=== PATIENT | male | born 1940 | race African-American/Black ===

== ENCOUNTER 2020-09-30 13:54 | Observation (INO) | payer MEDICARE ==
[~2020-09-30 13:54] MED LIST: Iopamidol-370 76% 500 ML 1 ML ONE
[2020-09-30] MEDS ORDERED: Nitroglycerin 0.4 MG TAB 1 EACH ONE (14:38)
[2020-09-30] MEDS ORDERED: Furosemide 20 MG/2 ML VIAL ONE (14:38)
--- NOTE | 2020-09-30 15:14 | CT ---
CT BRAIN NONCONTRAST: DATE: 09/30/2020 HISTORY: 80-year-old male with generalized weakness and hypertension COMPARISON: None FINDINGS: There is no evidence of acute intra-axial or extra-axial hemorrhage. There is no midline shift or any other mass effect. There is no extra-axial fluid collection. There is no evidence of obstructive hydrocephalus. Calvarium is intact. There are low attenuation areas in the white matter. These are no nspecific, but in a patient of this age, they are probably chronic ischemic white matter changes due to microvascular atherosclerosis. There is a small metallic foreign body along the anterior nasal septum centered slightly to the left of midline. The frontal, ethmoid, and sphenoid sinuses, upper portion of nasal cavity, and bilateral tympanomastoid cavities, are grossly clear. There is an approx imately 1 x 2 cm soft tissue density mass with irregular margins in the occipital subcutaneous fat, slightly to the left of midline. It contains a few punctate faint calcifications. IMPRESSION: 1) No acute intracranial findings. 2) chronic ischemic white matter changes. 3) metallic foreign body in the nasal cavity. 4) soft tissue density posterior occipital superficial mass. Etiology unknown.
[2020-09-30 15:18] LABS: Troponin I 0.041 ng/mL (< 0.028)
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
[2020-09-30] MEDS ORDERED: Enoxaparin Sodium 30 MG/0.3 ML SYRINGE ONE (17:18)
[2020-09-30] MEDS ORDERED: Enoxaparin Sodium 40 MG/0.4 ML SYRINGE ONE (17:18)
[2020-09-30] MEDS ORDERED: Acetaminophen 325 MG TAB PO PRN (17:20)
[2020-09-30] MEDS ORDERED: Ondansetron ODT 4 MG TAB PO PRN (17:20)
[2020-09-30] MEDS ORDERED: Ondansetron PF 4 MG/2 ML Vial IVP PRN (17:20)
--- NOTE | 2020-09-30 17:27 | CT ---
CT ANGIOGRAM THORAX WITH IV CONTRAST AND 3D RECONSTRUCTIONS: 09/30/20 HISTORY: Shortness of breath for the last three days. Dyspnea. Elevated D-dimer. COMPARISON: 03/11/20. FINDINGS: There are small filling defects seen within left lower lobe subsegmental pulmonary arteries. No addit ional filling defects are seen throughout the remainder of the pulmonary arteries to suggest addition al pulmonary emboli. There is suboptimal opacification of the thoracic aorta. Thoracic aorta is normal in caliber with den se vascular calcification present. Prominent vascular calcifications are also seen in the coronary ar teries. The ascending thoracic aorta is ectatic. A moderately large right pleural effusion is present, and the right pleural effusion has increased co mpared to study on 03/11/20. Innumerable subpleural blebs are present throughout the lungs bilaterally more numerous and greater o n the right. The previously described pleural based presumed bulla in the posterolateral left lower l obe is again seen, but there are adjacent ground glass opacities again seen. This again could be rela phillip to atypical infectious process. Cervantes of the presumed bullae or possibly cavitary lesion are thi n walled. No consolidation is present. There is an approximately 9 mm nodular density seen in the anterior aspect of the right upper lobe ad jacent to a prominent bulla with adjacent pleural based density and possibly pleural thickening. This nodular density was not appreciated on the prior study on 03/11/20. Follow-up evaluation is recommende d. Postoperative changes involving the right lung are again seen with areas of scarring again present. Hypodense nodule just anterior to the pericardium which measures 2 cm craniocaudal x 1.2 cm transvers e x 0.9 cm AP. Gallbladder calculus is again seen. Colonic diverticula are seen involving the visualized colon in th e upper abdomen. No other interval change. IMPRESSION: 1. Left lower lobe subsegmental pulmonary emboli. 2. Interval enlargement of right pleural effusion with moderately large right pleural effusion p resent on the current exam. 3. Postoperative changes right hemithorax. 4. Emphysematous changes within the lungs bilaterally. 5. Previously described ground glass opacities adjacent to thin walled gas collection/large sana pheral blebs is again present. This could be related to atypical infectious or inflammatory process. 6. Interval development of a nodular density within the anterior aspect right upper lobe with ad jacent pleural thickening. Follow-up CT scan thorax in six months is recommended. 7. Prominent vascular calcifications. 8. Hypodense nodule just anterior to the pericardium could potentially represent an enlarged lym ph node. This can also be re-evaluated on follow-up exam. 9. Cholelithiasis. Above findings discussed with Salima Chen, nurse practitioner in the Emergency Department on 09/30/20 at 1617 hours. POS: [facility]
[2020-09-30 18:00] LABS: PTT 35.5 sec (22.9-36.1); Prothrombin Time 13.2 sec (12.0-14.7)
[2020-09-30 21:37] LABS: SARS-CoV-2 MS2 Positive; SARS-CoV-2 N Gene Negative; SARS-CoV-2 S Gene Negative; SARS-CoV-2 by NAA Not Detected (NotDetected); SARS-CoV-2 orf1ab Negative
[2020-09-30 21:47] LABS: Troponin I 0.032 ng/mL (< 0.028)
[2020-09-30 23:40] VITALS: BMI 20.7
[2020-10-01 04:29] LABS: #Eosinphils 0.2 thou/uL (0.0-0.7); #Lymphocytes 1.6 thou/uL (1.20-3.40); #Monocytes 0.8 thou/uL (0.11-0.59); %Basophils 0.2 % (0.0-1.0); %Eosinophils 2.4 % (0.0-10.0); %Lymphocytes 16.4 % (21.0-51.0); Hemoglobin 14.5 g/dL (14.0-18.0); Mean Corpuscular HGB CONC 31.8 g/dL (32.0-36.0); Mean Corpuscular Volume 87.8 fL (78.0-98.0); Mean Platelet Volume 10.5 fL (7.4-10.4); Platelet Count 172 thou/uL (130-400); RBC Distribution Width 14.4 % (11.5-14.5); Red Blood Cell (RBC) Count 5.17 mill/uL (4.70-6.10); White Blood Cell (WBC) Count 9.6 thou/uL (4.8-10.8)
[2020-10-01 04:47] LABS: Anion Gap 16 mmol/L (10-20); BUN (Urea Nitrogen) 26 mg/dL (8.4-25.7); Calc. Creatinine Clearance 44 mL/min (70-130); Calcium 9.1 mg/dL (7.8-10.44); Carbon Dioxide 23 mmol/L (23-31); Chloride 108 mmol/L (98-107); Estimated GFR-MDRD 70; Glucose 116 mg/dL (83-110); Potassium 3.7 mmol/L (3.5-5.1); Sodium 143 mmol/L (136-145)
[2020-10-01] MEDS ORDERED: traMADol HCl 50 MG TAB PO PRN (05:47)
--- NOTE | 2020-10-01 05:54 | PDOC.FM ---
- Subjective Subjective: No acute events overnight. Patient was resting comfortably in bed. He denied CP, SOB, Abdominal pain. - Objective MAR Reviewed: Yes Vital Signs & Weight: Vital Signs (12 hours) Temp Pulse Resp BP Pulse Ox 10/01/20 04:00 97.7 F 104 H 16 178/101 H 96 09/30/20 23:08 98.2 F 93 14 156/103 H 98 Weight Weight 65.771 kg I&O: 09/29/20 09/30/20 10/01/20 06:59 06:59 06:59 Intake Total 130 Balance 130 Result Diagrams: 10/01/20 04:10 10/01/20 04:10 EKG Reviewed by me: Yes (ST 100-110) Phys Exam - Physical Examination Constitutional: NAD HEENT: moist MMs Neck: full ROM Respiratory: no wheezing, no rales Cardiovascular: RRR, no significant murmur Gastrointestinal: soft, no distention, positive bowel sounds Musculoskeletal: no edema Neurological: moves all 4 limbs Psychiatric: normal affect, A&O x 3 Skin: no rash Dx/Plan - Plan Plan: #Pulmonary emboli -D-dimer >20 -CTA: LLL subsegmental pulm emboli -started on therapeutic lovenox, will likely transition to PO eliquis in preparation for DC if medication covered by patient's insurance -on room air, denies CP, SOB -ekg: normal rate, sinus rhythm w/ occasional PVC's -admit to tele for continuous monitoring #Pleural Effusion -CTA: interval enlargement of R pleural effusion compared to study on 03/11/20 -s/p 40mg lasix IV in ED -no hx of HF, no echo in chart -ECHO taken, results pending -CBC, BMP: WNL, procal 0.02, -BNP 220, higher than previous visits -strict I/O's, daily weights, fluid restrict #Generalized weakness -CBC, CMP, TSH, procal: WNL -possible etiology: cancer, undiagnosed cardiomyopathy #Indeterminate troponin -0.031 > 0.042 > 0.041 > 0.032 -will trend #Lung cancer -aware -CTA: nodule located in RUL, postop changes of R lung #HTN -hypertensive in ED, pt did not take his meds this morning -started on home medication this am #CAD s/p stent placement -continue plavix #HLD -continue home statin Dispo: will likely DC home pending transitions to oral anticoagulation Addendum - Attending - Attending Attestation Date/Time: 10/01/20 1520 I personally evaluated the patient and discussed the management with Dr. Novak. I agree with the History, Examination, Assessment and Plan documented above with any addition or exceptions noted below. The patient's sats are stable on room air. Will transition to eliquis and d/c home.
[2020-10-01] MEDS ORDERED: Atorvastatin Calcium 40 MG TAB PO SCH (09:00)
[2020-10-01] MEDS ORDERED: Clopidogrel Bisulfate 75 MG TAB PO SCH (09:00)
[2020-10-01] MEDS ORDERED: Tamsulosin HCl 0.4 MG CAP PO SCH (09:00)
[2020-10-01] MEDS ORDERED: Amlodipine 10 MG TAB PO SCH (09:00)
[2020-10-01] MEDS ORDERED: Metoprolol Tartrate 25 MG TAB PO SCH (09:00)
[2020-10-01] MEDS ORDERED: Enoxaparin Sodium 80 MG/0.8 ML SYRINGE SC SCH (09:00)
[2020-10-01 14:08] VITALS: BP 141/84; TEMP 97.5
--- NOTE | 2020-10-02 11:46 | DIS ---
DATE OF ADMISSION: 09/30/2020 DATE OF DISCHARGE: 10/01/2020 RESIDENT: Lillian Novak MD ADMITTING ATTENDING: Juan Pablo Callahan MD DISCHARGE ATTENDING: Zari Pimentel MD CONSULTS: PT/OT. PROCEDURE/IMAGES: Brain CT, no acute intracranial findings. Chronic ischemic white matter changes. Metallic foreign body in nasal cavity. Soft tissue density, posterior occipital superficial mass. Etiology unknown. CT of the chest and thorax, left lower lobe segmental pulmonary emboli. Interval enlargement of right pleural effusion with moderately large right pleural effusion present on the current exam. Postoperative changes in the right hemothorax. Emphysematous changes within the lungs bilaterally. Previously described ground-glass opacities adjacent to thin wall. Gas collection/large peripheral blood again present. This could be related to atypical infectious or inflammatory process. Interval development of nodular density in the anterior aspect of the right upper lobe with adjacent pleural thickening. Followup CT scan thorax in six months is recommended. Prominent vascular calcifications. Hypodense nodule just anterior to the pericardium could potentially represent an enlarged lymph node. This could also be re-evaluated in followup exam. Cholelithiasis. Echocardiogram, moderate concentric left ventricular hypertrophy. EF estimated at 60% to 65%. EA flow reversal noted suggestive of diastolic dysfunction. Mild mitral regurg. Aortic valve is sclerotic. Mild tricuspid regurg. PRIMARY DIAGNOSIS: Pulmonary embolism. SECONDARY DIAGNOSES: 1. Pleural effusion. 2. Generalized weakness. 3. Indeterminate troponin. 4. Lung cancer. 5. Hypertension. 6. Coronary artery disease, status post stent placement. 7. Hyperlipidemia. DISCHARGE MEDICATIONS: 1. Amlodipine 10 mg p.o. daily. 2. Atorvastatin 40 mg p.o. daily. 3. Tramadol 50 mg p.o. p.r.n. 4. Tamsulosin 0.4 mg p.o. daily. 5. Metoprolol tartrate 12.5 mg p.o. b.i.d. 6. Plavix 75 mg p.o. daily. 7. Apixaban 10 mg p.o. twice a day for 14 days followed by apixaban 5 mg p.o. b.i.d. DISCONTINUED MEDICATIONS: None. HOSPITAL COURSE: The patient is an 80-year-old male with a past medical history of lung cancer, coronary artery disease status post stent placement, on Plavix, who presents with generalized weakness. He reports as if his "legs were going to give out." He also reported that he would occasionally skip breath and that his blood pressure readings showed heart rhythm with "out of rhythm heart beat." He reports he had lung cancer 3 to 4 years ago with a right lung lobectomy, but his cancer recently came back and he plans to visit his oncologist soon. Upon admission to the hospital, the patient was found to have left lower lobe segmental pulmonary emboli. He was started on therapeutic Lovenox. The patient was maintaining good O2 saturation on room air and did not require supplemental oxygen throughout his stay. He had an EKG that showed normal rate and sinus rhythm with occasional PVCs. He was admitted to telemetry for continuous monitoring. The CTA also showed pleural effusion and he was given 40 mg of IV Lasix in the ED. An echo was ordered, which showed the above results. His CBC and BMP were within normal limits. The pleural effusion and generalized weakness were likely secondary to the patient's cancer diagnosis. He was also found to have indeterminate troponins, which were trended x4 and trended down. The patient was started on his home antihypertensive and home statin while hospitalized. On day of discharge, the patient was transitioned to an oral anticoagulant and was encouraged to take this medication as prescribed until followup with his PCP. DISPOSITION: Stable. DISCHARGE INSTRUCTIONS: LOCATION: Home. DIET: Regular. ACTIVITY: As tolerated. FOLLOWUP: The patient should follow up with his primary care physician, Dr. Laure Rosado, in 7 days for continued anticoagulation instructions. Job ID: [id number]
== END 2020-10-01 15:42 | disposition home or self-care (01) ==
LOC: ERS 13:54 → 2NO 17:03
PROVIDERS: ADMIT Family Medicine; ATTEND Family Medicine
DX: I26.99 Other pulmonary embolism without acute cor pulmonale (principal); J90 Pleural effusion, not elsewhere classified; K80.20 Calculus of gallbladder without cholecystitis without obstruction; I08.1 Rheumatic disorders of both mitral and tricuspid valves; I25.10 Atherosclerotic heart disease of native coronary artery without angina pectoris; I12.9 Hypertensive chronic kidney disease with stage 1 through stage 4 chronic kidney disease, or unspecified chronic kidney disease; N18.9 Chronic kidney disease, unspecified; E78.5 Hyperlipidemia, unspecified; C34.90 Malignant neoplasm of unspecified part of unspecified bronchus or lung; Z79.02 Long term (current) use of antithrombotics/antiplatelets; Z79.899 Other long term (current) drug therapy; Z87.891 Personal history of nicotine dependence; Z95.5 Presence of coronary angioplasty implant and graft
CPT/HCPCS: 70450; 71275; 80048; 84145; 84484; 85025; 85379; 85610; 85730; 93005; 93306; 96372; 96374; 97139; 99285; U0003; 36415; 87635; G0378; J1650; J1940; Q9967

== ENCOUNTER 2021-02-13 10:44 | Inpatient (IN) | payer MEDICARE ==
[2021-02-13 11:34] LABS: #Eosinphils 0.1 thou/uL (0.0-0.7); #Lymphocytes 1.1 thou/uL (1.20-3.40); #Monocytes 0.9 thou/uL (0.11-0.59); #Neutrophils 7.6 thou/uL (1.40-6.50); %Eosinophils 1.3 % (0.0-10.0); %Lymphocytes 11.6 % (21.0-51.0); %Monocytes 8.9 % (0.0-10.0); %Neutrophils 78.3 % (42.0-75.0); Hemoglobin 11.1 g/dL (14.0-18.0); Mean Corpuscular HGB CONC 32.2 g/dL (32.0-36.0); Mean Corpuscular Hemoglobin 27.5 pg (27.0-31.0); Mean Corpuscular Volume 85.5 fL (78.0-98.0); Mean Platelet Volume 8.9 fL (7.4-10.4); Platelet Count 280 thou/uL (130-400); RBC Distribution Width 16.1 % (11.5-14.5); Red Blood Cell (RBC) Count 4.04 mill/uL (4.70-6.10); White Blood Cell (WBC) Count 9.7 thou/uL (4.8-10.8)
[2021-02-13 11:45] LABS: ALT (SGPT) 10 U/L (8-55); AST (SGOT) 16 U/L (5-34); Albumin 3.3 g/dL (3.4-4.8); Alkaline Phosphatase 106 U/L (40-110); Anion Gap 15 mmol/L (10-20); BUN (Urea Nitrogen) 14 mg/dL (8.4-25.7); Bilirubin, Total 0.5 mg/dL (0.2-1.2); Calc. Creatinine Clearance 0 mL/min (70-130); Calcium 9.2 mg/dL (7.8-10.44); Carbon Dioxide 24 mmol/L (23-31); Chloride 105 mmol/L (98-107); Globulin 3.8 g/dL (2.4-3.5); Glucose 120 mg/dL (83-110); Potassium 3.7 mmol/L (3.5-5.1); Protein, Total 7.1 g/dL (5.8-8.1); Sodium 140 mmol/L (136-145)
[2021-02-13 12:08] LABS: CKMB 4.2 ng/mL (0-6.6)
[2021-02-13] MEDS ORDERED: Iopamidol-370 76% 500 ML 1 ML ONE (12:08)
[2021-02-13 13:46] LABS: SARS-CoV-2 NAA Rapid Test Not Detected (NotDetected)
[2021-02-13] MEDS ORDERED: HYDROcodone/Acetaminophen 5/325 mg Tablet PO PRN (14:51)
[2021-02-13] MEDS ORDERED: Cepastat Lozenges 1 LOZ PO PRN (14:51)
[2021-02-13] MEDS ORDERED: Nitroglycerin 0.4 MG TAB (25 Tab Bottle) SL PRN (14:51)
[2021-02-13] MEDS ORDERED: Loperamide HCl 2 MG CAP PO PRN (14:51)
[2021-02-13] MEDS ORDERED: Senokot S 8.6-50 MG TAB PO PRN (14:51)
[2021-02-13] MEDS ORDERED: Sodium Chloride 0.65% Nasal 44 ML BOT EA NARE PRN (14:51)
[2021-02-13] MEDS ORDERED: Calcium Carbonate 500 MG ChewTAB PO PRN (14:51)
[2021-02-13] MEDS ORDERED: Guaifenesin DM 100-10/5 ML UDCUP PO PRN (14:51)
[2021-02-13] MEDS ORDERED: Ondansetron PF 4 MG/2 ML Vial IVP PRN (14:51)
[2021-02-13] MEDS ORDERED: Benzonatate 100 MG CAP PO PRN (14:51)
[2021-02-13] MEDS ORDERED: Labetalol HCl 100 MG/20 ML VIAL SLOW IVP PRN (14:51)
[2021-02-13] MEDS ORDERED: Bisacodyl 10 MG SUPP PR PRN (14:51)
[2021-02-13] MEDS ORDERED: Loratadine 10 MG TAB PO PRN (14:51)
[2021-02-13] MEDS ORDERED: Acetaminophen 325 MG TAB PO PRN (14:51)
[2021-02-13] MEDS ORDERED: Ondansetron ODT 4 MG TAB PO PRN (14:51)
[2021-02-13] MEDS ORDERED: hydrALAZINE 20 MG/ML VIAL SLOW IVP PRN (14:51)
[2021-02-13 15:24] LABS: Troponin I 3.647 ng/mL (< 0.028)
[2021-02-13] MEDS ORDERED: Aspirin 325 MG TAB PO SCH (15:45)
[2021-02-13] MEDS: Carvedilol 6.25 MG TAB PO SCH (16:23)
[2021-02-13] MEDS ORDERED: Sodium Chloride 0.9% 1,000 ML IV SCH (17:30)
[2021-02-13 18:38] LABS: Troponin I 14.106 ng/mL (< 0.028)
[2021-02-13] MEDS: Famotidine 20 MG TAB PO SCH (20:22)
[2021-02-13] MEDS: Metoprolol Tartrate 25 MG TAB PO SCH (20:23)
[2021-02-13] MEDS: Atorvastatin Calcium 40 MG TAB PO SCH (20:23)
[2021-02-13] MEDS: Enoxaparin Sodium 60 MG/0.6 ML SYRINGE SC SCH (20:24)
[2021-02-13] MEDS: Zolpidem Tartrate 5 MG TAB PO PRN (20:33)
[2021-02-13] MEDS ORDERED: Nitroglycerin 2% Ointment 1 INCH/1 GM Packet TOP SCH (21:00)
[2021-02-13] MEDS: Nitroglycerin 2% Ointment 1 INCH/1 GM Packet TOP SCH (21:48)
[2021-02-14 04:24] LABS: #Eosinphils 0.2 thou/uL (0.0-0.7); #Lymphocytes 1.3 thou/uL (1.20-3.40); #Neutrophils 7.9 thou/uL (1.40-6.50); %Basophils 0.3 % (0.0-1.0); %Eosinophils 1.9 % (0.0-10.0); %Lymphocytes 12.6 % (21.0-51.0); %Monocytes 9.8 % (0.0-10.0); %Neutrophils 75.5 % (42.0-75.0); Mean Corpuscular HGB CONC 32.6 g/dL (32.0-36.0); Mean Corpuscular Hemoglobin 27.5 pg (27.0-31.0); Mean Corpuscular Volume 84.3 fL (78.0-98.0); Mean Platelet Volume 8.9 fL (7.4-10.4); Platelet Count 275 thou/uL (130-400); RBC Distribution Width 16.2 % (11.5-14.5); Red Blood Cell (RBC) Count 3.63 mill/uL (4.70-6.10); White Blood Cell (WBC) Count 10.5 thou/uL (4.8-10.8)
[2021-02-14 04:53] LABS: Anion Gap 11 mmol/L (10-20); BUN (Urea Nitrogen) 13 mg/dL (8.4-25.7); Calc. Creatinine Clearance 62 mL/min (70-130); Calcium 8.5 mg/dL (7.8-10.44); Carbon Dioxide 26 mmol/L (23-31); Chloride 106 mmol/L (98-107); Cholesterol 140 mg/dl (< 200 Desired); Glucose 103 mg/dL (83-110); HDL Cholesterol 46 mg/dL (>60 Neg Risk); LDL Cholesterol, Calculated 72 mg/dL; Potassium 3.5 mmol/L (3.5-5.1); Sodium 139 mmol/L (136-145); Triglycerides 109 mg/dL (Less than 150)
[2021-02-14] MEDS: Nitroglycerin 2% Ointment 1 INCH/1 GM Packet TOP SCH ×3 (05:09→20:58)
[2021-02-14] MEDS: Aspirin 325 MG TAB PO SCH (08:23)
[2021-02-14] MEDS: Enoxaparin Sodium 60 MG/0.6 ML SYRINGE SC SCH ×2 (08:24→20:58)
[2021-02-14] MEDS: Lisinopril 5 MG TAB PO SCH (08:24)
[2021-02-14] MEDS: Metoprolol Tartrate 25 MG TAB PO SCH (08:24)
[2021-02-14] MEDS: Famotidine 20 MG TAB PO SCH (08:24)
[2021-02-14] MEDS: Furosemide 20 MG TAB PO SCH ×2 (08:24→14:49)
[2021-02-14] MEDS: Carvedilol 6.25 MG TAB PO SCH ×2 (08:30→16:28)
[2021-02-14 13:58] VITALS: BMI 20.9
[2021-02-14] MEDS: Gabapentin 300 MG CAP PO SCH (20:57)
[2021-02-14] MEDS: Amitriptyline HCl 10 MG TAB PO SCH (20:57)
[2021-02-14] MEDS: Zolpidem Tartrate 5 MG TAB PO PRN (20:57)
[2021-02-14] MEDS: Atorvastatin Calcium 40 MG TAB PO SCH (20:58)
[2021-02-15 04:31] LABS: #Eosinphils 0.3 thou/uL (0.0-0.7); #Lymphocytes 1.8 thou/uL (1.20-3.40); #Monocytes 1.5 thou/uL (0.11-0.59); #Neutrophils 7.2 thou/uL (1.40-6.50); %Basophils 0.2 % (0.0-1.0); %Eosinophils 2.8 % (0.0-10.0); %Lymphocytes 16.4 % (21.0-51.0); %Monocytes 13.6 % (0.0-10.0); %Neutrophils 67.1 % (42.0-75.0); Hemoglobin 10.4 g/dL (14.0-18.0); Mean Corpuscular HGB CONC 33.1 g/dL (32.0-36.0); Mean Corpuscular Hemoglobin 28.3 pg (27.0-31.0); Mean Corpuscular Volume 85.6 fL (78.0-98.0); Mean Platelet Volume 9.2 fL (7.4-10.4); Platelet Count 190 thou/uL (130-400); RBC Distribution Width 16.4 % (11.5-14.5); Red Blood Cell (RBC) Count 3.69 mill/uL (4.70-6.10); White Blood Cell (WBC) Count 10.7 thou/uL (4.8-10.8)
[2021-02-15 04:43] LABS: Anion Gap 15 mmol/L (10-20); BUN (Urea Nitrogen) 15 mg/dL (8.4-25.7); Calc. Creatinine Clearance 53 mL/min (70-130); Calcium 8.4 mg/dL (7.8-10.44); Carbon Dioxide 20 mmol/L (23-31); Chloride 106 mmol/L (98-107); Glucose 87 mg/dL (83-110); Potassium 3.5 mmol/L (3.5-5.1); Sodium 137 mmol/L (136-145)
[2021-02-15] MEDS: Nitroglycerin 2% Ointment 1 INCH/1 GM Packet TOP SCH ×3 (05:56→21:57)
[2021-02-15] MEDS: Carvedilol 6.25 MG TAB PO SCH ×2 (09:48→18:06)
[2021-02-15] MEDS: Aspirin 325 MG TAB PO SCH (09:48)
[2021-02-15] MEDS: Gabapentin 300 MG CAP PO SCH ×2 (09:48→22:00)
[2021-02-15] MEDS: Tamsulosin HCl 0.4 MG CAP PO SCH (09:48)
[2021-02-15] MEDS: Lisinopril 5 MG TAB PO SCH (09:48)
[2021-02-15] MEDS: traZODone HCl 50 MG TAB PO SCH (09:49)
[2021-02-15] MEDS: Furosemide 20 MG TAB PO SCH ×2 (09:49→14:36)
[2021-02-15] MEDS: Enoxaparin Sodium 60 MG/0.6 ML SYRINGE SC SCH ×2 (09:50→21:57)
[2021-02-15] MEDS: Atorvastatin Calcium 40 MG TAB PO SCH (21:58)
[2021-02-15] MEDS: Amitriptyline HCl 10 MG TAB PO SCH (21:58)
[2021-02-15] MEDS: Zolpidem Tartrate 5 MG TAB PO PRN (23:33)
[2021-02-16 04:58] LABS: #Eosinphils 0.3 thou/uL (0.0-0.7); #Lymphocytes 1.4 thou/uL (1.20-3.40); #Neutrophils 6.2 thou/uL (1.40-6.50); %Basophils 0.4 % (0.0-1.0); %Monocytes 11.2 % (0.0-10.0); %Neutrophils 69.4 % (42.0-75.0); Hemoglobin 9.4 g/dL (14.0-18.0); Mean Corpuscular HGB CONC 31.1 g/dL (32.0-36.0); Mean Corpuscular Hemoglobin 26.5 pg (27.0-31.0); Mean Corpuscular Volume 85.1 fL (78.0-98.0); Mean Platelet Volume 9.5 fL (7.4-10.4); Platelet Count 248 thou/uL (130-400); RBC Distribution Width 16.8 % (11.5-14.5); Red Blood Cell (RBC) Count 3.55 mill/uL (4.70-6.10); White Blood Cell (WBC) Count 8.9 thou/uL (4.8-10.8)
[2021-02-16 05:21] LABS: Anion Gap 12 mmol/L (10-20); BUN (Urea Nitrogen) 22 mg/dL (8.4-25.7); Calc. Creatinine Clearance 42 mL/min (70-130); Calcium 8.5 mg/dL (7.8-10.44); Carbon Dioxide 26 mmol/L (23-31); Chloride 104 mmol/L (98-107); Glucose 87 mg/dL (83-110); Potassium 3.4 mmol/L (3.5-5.1); Sodium 139 mmol/L (136-145)
[2021-02-16] MEDS: Nitroglycerin 2% Ointment 1 INCH/1 GM Packet TOP SCH ×3 (06:06→21:47)
[2021-02-16] MEDS: Gabapentin 300 MG CAP PO SCH ×2 (06:07→21:47)
[2021-02-16] MEDS: Tamsulosin HCl 0.4 MG CAP PO SCH (06:07)
[2021-02-16] MEDS: Aspirin 325 MG TAB PO SCH (06:07)
[2021-02-16] MEDS: Carvedilol 6.25 MG TAB PO SCH ×2 (06:07→18:33)
[2021-02-16] MEDS: Sodium Chloride 0.9% 1,000 ML IV SCH ×2 (06:08→18:33)
[2021-02-16] MEDS: traZODone HCl 50 MG TAB PO SCH (06:08)
[2021-02-16] MEDS: Lisinopril 5 MG TAB PO SCH (06:08)
[2021-02-16] MEDS: Furosemide 20 MG TAB PO SCH ×2 (08:46→14:41)
[2021-02-16] MEDS ORDERED: Iopamidol 370 76% 100 ML VIAL ONE (11:13)
[2021-02-16] MEDS ORDERED: Iopamidol 370 76% 50 ML VIAL FS ONE (11:13)
[2021-02-16] MEDS ORDERED: Lidocaine 1% (PF) 30 ML VIAL ONE (11:47)
[2021-02-16] MEDS ORDERED: Heparin 10,000 UNITS/ 10 ML VIAL ONE (12:45)
[2021-02-16] MEDS ORDERED: Adenosine 6 MG/2 ML VIAL ONE (12:57)
[2021-02-16] MEDS ORDERED: Verapamil 5 MG/2 ML VIAL ONE (12:57)
[2021-02-16] MEDS ORDERED: Nitroglycerin 100MG/250ML BOT 250 ML ONE (12:58)
[2021-02-16] MEDS ORDERED: Clopidogrel Bisulfate 300 MG TAB ONE (13:30)
[2021-02-16] MEDS: Amitriptyline HCl 10 MG TAB PO SCH (21:47)
[2021-02-16] MEDS: Atorvastatin Calcium 40 MG TAB PO SCH (21:47)
[2021-02-16] MEDS: Zolpidem Tartrate 5 MG TAB PO PRN (21:50)
[2021-02-17] MEDS: Sodium Chloride 0.9% 1,000 ML IV SCH (02:16)
[2021-02-17 05:13] LABS: #Eosinphils 0.3 thou/uL (0.0-0.7); #Lymphocytes 1.1 thou/uL (1.20-3.40); #Monocytes 1.1 thou/uL (0.11-0.59); #Neutrophils 6.9 thou/uL (1.40-6.50); %Basophils 0.2 % (0.0-1.0); %Eosinophils 3.6 % (0.0-10.0); %Lymphocytes 11.4 % (21.0-51.0); %Monocytes 11.6 % (0.0-10.0); %Neutrophils 73.1 % (42.0-75.0); Hemoglobin 9.7 g/dL (14.0-18.0); Mean Corpuscular HGB CONC 31.1 g/dL (32.0-36.0); Mean Corpuscular Volume 86.9 fL (78.0-98.0); Mean Platelet Volume 9.8 fL (7.4-10.4); Platelet Count 195 thou/uL (130-400); RBC Distribution Width 16.5 % (11.5-14.5); Red Blood Cell (RBC) Count 3.58 mill/uL (4.70-6.10); White Blood Cell (WBC) Count 9.4 thou/uL (4.8-10.8)
[2021-02-17 05:31] LABS: ALT (SGPT) 11 U/L (8-55); AST (SGOT) 22 U/L (5-34); Albumin 2.5 g/dL (3.4-4.8); Alkaline Phosphatase 80 U/L (40-110); Anion Gap 14 mmol/L (10-20); BUN (Urea Nitrogen) 16 mg/dL (8.4-25.7); Bilirubin, Total 0.8 mg/dL (0.2-1.2); Calc. Creatinine Clearance 58 mL/min (70-130); Calcium 8.2 mg/dL (7.8-10.44); Carbon Dioxide 15 mmol/L (23-31); Chloride 110 mmol/L (98-107); Globulin 3.3 g/dL (2.4-3.5); Glucose 83 mg/dL (83-110); Potassium 3.4 mmol/L (3.5-5.1); Protein, Total 5.8 g/dL (5.8-8.1); Sodium 136 mmol/L (136-145)
[2021-02-17] MEDS: Nitroglycerin 2% Ointment 1 INCH/1 GM Packet TOP SCH (06:05)
[2021-02-17] MEDS: Tamsulosin HCl 0.4 MG CAP PO SCH (08:38)
[2021-02-17] MEDS: Gabapentin 300 MG CAP PO SCH (08:38)
[2021-02-17] MEDS: Lisinopril 5 MG TAB PO SCH (08:39)
[2021-02-17] MEDS: Furosemide 20 MG TAB PO SCH ×2 (08:39→14:37)
[2021-02-17] MEDS: traZODone HCl 50 MG TAB PO SCH (08:39)
[2021-02-17] MEDS ORDERED: Aspirin 81 mg Enteric Coated Tablet PO SCH (09:00)
[2021-02-17] MEDS ORDERED: Carvedilol 6.25 MG TAB PO SCH (09:00)
[2021-02-17] MEDS ORDERED: Clopidogrel Bisulfate 75 MG TAB PO SCH (09:00)
[2021-02-17 13:31] VITALS: TEMP 97.9
[2021-02-17 14:27] VITALS: BP 137/74
== END 2021-02-17 14:52 | disposition home or self-care (01) | DRG 246 ==
LOC: ERS 10:44 → 2NO 14:38
PROVIDERS: ADMIT Internal Medicine; ATTEND Internal Medicine
PROC: 027034Z Dilation of Coronary Artery, One Artery with Drug-eluting Intraluminal Device, Percutaneous Approach (ICD-10-PCS; principal; 2021-02-16)
PROC: B2111ZZ Fluoroscopy of Multiple Coronary Arteries using Low Osmolar Contrast (ICD-10-PCS; 2021-02-16)
PROC: 4A023N7 Measurement of Cardiac Sampling and Pressure, Left Heart, Percutaneous Approach (ICD-10-PCS; 2021-02-16)
DX: I11.0 Hypertensive heart disease with heart failure (principal); I21.A1 Myocardial infarction type 2; J44.9 Chronic obstructive pulmonary disease, unspecified; I50.33 Acute on chronic diastolic (congestive) heart failure; D63.8 Anemia in other chronic diseases classified elsewhere; I25.10 Atherosclerotic heart disease of native coronary artery without angina pectoris; N40.0 Benign prostatic hyperplasia without lower urinary tract symptoms; Z20.822 Contact with and (suspected) exposure to COVID-19; E78.5 Hyperlipidemia, unspecified; Z85.118 Personal history of other malignant neoplasm of bronchus and lung; Z86.711 Personal history of pulmonary embolism; Z79.01 Long term (current) use of anticoagulants; Z86.73 Personal history of transient ischemic attack (TIA), and cerebral infarction without residual deficits; Z95.5 Presence of coronary angioplasty implant and graft
CPT/HCPCS: 0240U; 36415; 36416; 71045; 71275; 76942; 80048; 80053; 80061; 82553; 83735; 83880; 84484; 85025; 85347; 92928; 93005; 93010; 93306; 93454; 93798; 94640; C9600; J0153; J1644; J1650; J2001; J7620; Q9967